=== PATIENT | female | born 1960 | race Caucasian/White ===

== ENCOUNTER 2017-09-03 12:11 | Emergency (ER) | payer OTHER ==
--- NOTE | 2017-09-03 14:01 | RAD ---
RADIOGRAPH RIGHT ANKLE 3 VIEWS: Date: 09/03/17 HISTORY: 57-year-old female status post traumatic right ankle injury from fall. FINDINGS: No fracture or dislocation. Ankle mortise is symmetrical. Anterior soft tissue swelling. IMPRESSION: 1. No fracture. 2. Mild anterior soft tissue edema. POS: [facility]
--- NOTE | 2017-09-03 22:54 | RAD ---
RIGHT FOOT THREE VIEWS: Date: 09-03-17 FINDINGS: No fracture was appreciated. There is some soft tissue swelling on the dorsum of the foot, but the vera ints and bones all appeared intact. IMPRESSION: No acute bony findings. POS: HOME
== END 2017-09-03 13:29 | disposition home or self-care (01) ==
LOC: BURERS 12:11
DX: S93.401A Sprain of unspecified ligament of right ankle, initial encounter (principal); W18.30XA Fall on same level, unspecified, initial encounter

== ENCOUNTER 2017-09-19 11:50 | Outpatient (CLI) | payer OTHER ==
--- NOTE | 2017-09-19 18:32 | RAD ---
RIGHT KNEE FOUR VIEWS: 09/19/17 No fracture or joint effusion was seen. The joint space appears normal and the articular surfaces are smooth. The proximal tibia and fibula appear intact. IMPRESSION: No acute finding. POS: HOME
--- NOTE | 2017-09-19 18:35 | RAD ---
RIGHT ANKLE THREE VIEWS: 09/19/17 Comparison is made with the 09/03 study. There seems to be a little more soft tissue swelling around the ankle than before, especially lateral ly. Nevertheless, no fracture was appreciated. The articular surfaces are smooth. IMPRESSION: No acute bony finding. POS: HOME
== END 2017-09-19 11:51 | disposition home or self-care (01) ==
LOC: BURRAD 11:50
PROVIDERS: ATTEND Family Medicine
DX: S93.491D Sprain of other ligament of right ankle, subsequent encounter (principal)